=== PATIENT | female | born 1960 | race Caucasian/White ===

== ENCOUNTER → 2016-11-18 | Outpatient (CLI) | payer BC ==
--- NOTE | ~2016-11-18 | MY11 ---
[facility] A Service of [facility] / [facility] RADIOLOGY TEXT RESULTS PATIENT: ANURADHA SUH LOCATION: [facility] : 60 UNIT #: [id number] AGE: [address]: Salbador Lamb MD SEX: F ORDER DR: [id number] [facility] [address] [place], [place] [address] [id number] O MR#: [id number] Acc #: [id number] NAME: ANURADHA SUH : 1960 SEX: F STUDY DATE/TIME: 11/18/2016 10:54 UNIT: [facility] ROOM: STUDY DESCRIPTION: MY Mammogram Screening Dig [place] Attending Physician: Salbador Lamb M.D. Referring Physician: Salbador Lamb M.D. Ordering Physician: Salbador Lamb M.D. Primary Care Physician: Prince Coombs M.D. MEDICAL IMAGING REPORT This report is preliminary unless electronic signature is present EXAM Bilateral digital screening mammogram with CAD. INDICATION Breast cancer screening. 56-year-old asymptomatic female. No personal or family history of breast cancer. COMPARISON 06/12/2015, 01/10/2014, 09/28/2011, 02/22/2010. FINDINGS The breast tissue is heterogeneously dense, which could obscure detection of small masses. No suspicious findings are seen. IMPRESSION No mammographic evidence of malignancy. Annual clinical breast exam is recommended. Given the patient's breast density, she would likely benefit from annual screening breast tomosynthesis given increased sensitivity and diminished false positive rate as compared to conventional digital mammography. Patients over the age of 40 are entered into a reminder system with target due date for the next mammogram. A result letter will be sent to the patient. BIRADS Final Assessment Category 1: NEGATIVE Dictated by... Douglas Hurley M.D. [facility] A Service [facility] RADIOLOGY TEXT RESULTS PATIENT: ANURADHA SUH LOCATION: [facility] : 60 UNIT #: [id number] AGE: [address]: Salbador Lamb MD SEX: F ORDER DR: THIS IS AN ELECTRONICALLY VERIFIED REPORT Douglas Hurley M.D. at 11/18/2016 5:28 PM Sweetie TD: 11/18/2016 12:56 JOB #: [id number] MEDICAL IMAGING REPORT Page 1 of 1 COPY
== END | disposition home or self-care (01) ==
LOC: CWCC 10:24
DX: Z12.31 Encounter for screening mammogram for malignant neoplasm of breast (principal)
CPT/HCPCS: G0202